=== PATIENT | female | born 1960 ===

== ENCOUNTER → 2023-07-01 08:00 | Outpatient (REF) | payer BC, SELFPAY | LOC: RAD 08:00 | PROVIDERS: ATTENDING PHYSICIAN Student in an Organized Health Care Education/Training Program; FAMILY PHYSICIAN Internal Medicine; OTHER PHYSICIAN Dermatology; OTHER PHYSICIAN Internal Medicine Cardiovascular Disease; OTHER PHYSICIAN Plastic Surgery Surgery of the Hand; REFERRING PHYSICIAN Specialist | DX: G56.03 Carpal tunnel syndrome, bilateral upper limbs (principal) | CPT/HCPCS: 76882 ==

== ENCOUNTER 2023-12-03 13:21 | Emergency (ER) | payer BC, SELFPAY ==
[2023-12-03 13:24] VITALS: BP 166/82
[2023-12-03 13:25] VITALS: BP 166/82
[2023-12-03 13:56] VITALS: BMI 32.5
[2023-12-03 13:56] LABS: % Basophils 0.2 % (0-2); % Immature Granulocytes 0.2 % (0-0.5); % Monocytes 7.7 % (1.7-9.3); % Neutrophils 62.9 % (42.2-75.2); Absolute Lymphocytes 1.9 10^3/uL (1.2-3.4); Absolute Monocytes 0.5 10^3/uL (0.1-0.6); Absolute Neutrophils 4.1 10^3/uL (1.4-6.5); Hematocrit 40.3 % (37.0-47.0); Hemoglobin 13.3 g/dL (12.0-16.0); Mean Corpuscular Hgb 27.4 pg (27.0-31.0); Mean Corpuscular Volume 83.1 fL (81.0-99.0); Mean Platelet Volume 9.2 fL (7.4-10.4); Nucleated Red Blood Cells % 0 %; Platelet Count 380 10^3/uL (130-400); Red Blood Cell Count 4.85 10^6/uL (4.20-5.40); Red Cell Dist. Width 13.2 % (11.5-14.5); White Blood Cell Count 6.5 10^3/uL (4.8-10.8)
[2023-12-03 14:00] VITALS: BP 141/64
[2023-12-03 14:07] LABS: ALT (SGPT) 17 U/L (0-35); AST (SGOT) 30 U/L (14-36); Albumin 4.2 g/dl (3.5-5.0); Alkaline Phosphatase 62 U/L (38-126); Blood Urea Nitrogen 30 mg/dl (7-17); Calcium 9.5 mg/dl (8.4-10.2); Carbon Dioxide 28 mmol/L (22-30); Chloride 98 mmol/L (98-107); Estimated Creatinine Clearance 84 ml/min; Glucose 91 mg/dl (70-99); Magnesium 1.8 mg/dl (1.6-2.3); Potassium 4.4 mmol/L (3.5-5.1); Sodium 139 mmol/L (135-145); Total Bilirubin 0.4 mg/dl (0.2-1.3); Total Protein 7.8 g/dl (6.3-8.2); eGFR > 60.00
--- NOTE | 2023-12-03 14:58 | ED.GENMED ---
History of Present Illness
General
Chief Complaint: Heart Rate Problem
Time Seen by Provider: 12/03/23 14:13
History of Present Illness
History of Present Illness:
Patient presents to the emergency department with episode of dizziness and bradycardia. She notes that while she was at work today she started feeling lightheaded and looked down at her Apple Watch which said her heart rate was around 40 bpm. She
did not lose consciousness. She went to the urgent care where they found her to be hypertensive and sent her to the emergency department. Symptoms have resolved at this time. She reports that she has a history of SVT status post ablation. She
notes that she has a history of frequent PVCs. Denies chest pain. Denies leg swelling.
Phy Exam
Physical Exam
Physical Exam:
GENERAL APPEARANCE: NAD, well developed/ well nourished
EYES lids/conjunctiva normal
EARS/NOSE/THROAT Mucous membranes moist, uvula midline without oral pharyngeal erythema, exudate or swelling
HEAD/NECK normocephalic atraumatic, neck is supple.
RESPIRATORY respiratory effort normal, speaks in full sentences, no accessory muscle use. Lungs clear to auscultation without rhonchi, wheezes, rales
CARDIAC frequent ectopy, regular rate in the 80s.
ABDOMINAL Soft, ND/NT. No pulsatile masses on exam, rebound tenderness, White sign or pain over Mcburney's point.
MUSCLES/EXTREMITIES No abnormal range of motion, no swelling.
SKIN Warm, pink and dry. No rashes
NEUROLOGICAL Speech is clear and appropriate. Normal level of consciousness. 5/5 strength in all extremities.
PSYCH Normal mood and affect. Judgement/competence is appropriate
Course
Orders/Labs/Results
Orders:
Orders
12/03/23 13:29
EKG [Electrocardiogram (*1)] Urgent
Reason for Study: Vertigo / Dizzy
12/03/23 13:30
EKG- Treatment ONCE
12/03/23 13:45
CMP [Comprehensive Metabolic Panel] Urgent
Complete Blood Count/With Diff Urgent
Free T4 Urgent
Magnesium Urgent
TSH Reflex To Free T4 Urgent
Abnormal Lab Results
12/03/23
13:45
BUN 30 H mg/dl
(7-17)
TSH (Reflex) 11.30 H uIU/ml
(0.47-4.68)
12/03/23 13:45
12/03/23 13:45
Vital Signs
Initial and Last Documented VS:
Initial Vital Signs
Temp Pulse Resp BP Pulse Ox
97.6 F 87 16 166/82 99
12/03/23 13:24 12/03/23 13:24 12/03/23 13:24 12/03/23 13:24 12/03/23 13:24
Last Documented Vital Signs
Temp Pulse Resp BP Pulse Ox
97.6 F 85 20 128/82 99
12/03/23 13:24 12/03/23 15:15 12/03/23 15:15 12/03/23 15:00 12/03/23 13:53
*Critical Care Note
Total Time (30-74mins, 75-104mins- exclusive of procedures): Not Applicable
ED Attending Note
ED Attending Note
ED Attending Note:
Patient was resolved episode of possible bradycardia per her Apple Watch. On arrival to the urgency department she is in sinus rhythm with frequent frequent PVCs which she reports history of. She is hemodynamically stable. Lab work is reassuring.
She has known thyroid disease and her T4 is within normal limits. Discussed close follow-up with her cellular phone repairer for Holter monitor. Return precautions given.
-
Portions of this chart may have been created with voice recognition software.� Occasional wrong word or��sound alike� substitutions may have occurred due to the inherent limitations of voice recognition software.
Discharge Plan
Departure
Patient Disposition: Home (Routine Discharge)
Date of Disposition: 12/03/23
Time of Disposition: 15:19
Patient with high blood pressure during this ER visit?: Yes
Discharge Problem:
Dizziness, Hypertension
Instructions: Ventricular premature beats
Prescriptions:
No Action
Theragen Tablet
1 tab PO DAILY
levothyroxine [Synthroid] 150 mcg Tablet
150 mcg PO DAILY
calcium carbonate [Tums] 200 mg calcium (500 mg) Tablet,Chewable
200 mg PO QIDPRN PRN (Reason: stomach issues)
hydrochlorothiazide 12.5 mg Capsule
12.5 mg PO DAILY
ibuprofen [Advil] 200 mg Tablet
400 mg PO Q6HPRN PRN (Reason: mild pain)
ergocalciferol (vitamin D2) [Vitamin D2] 1,250 mcg (50,000 unit) Capsule
1,250 mcg PO WE
carboxymethylcellulose sodium [Refresh Plus] 0.5 % Dropperette
1 drp BOTH EYES HS
Systane Ultra 0.4-0.3 % Drops
1 drp BOTH EYES DAILY
Referrals:
Zoe Stone MD [Family Provider] -
Activity Restrictions/Additional Instructions:
Please follow up with your cellular phone repairer as soon as possible. Return to ER with worsening symptoms
Interventions
Interventions:
*Risk Screen - Suicide Last Done: 12/03/23 13:24
*General Assessment Last Done: 12/03/23 13:24
*Neglect/Abuse Screening Last Done: 12/03/23 13:24
ED- Fall Risk Assessment Last Done: 12/03/23 13:53
*ED COVID-19 Vaccine History Last Done: 12/03/23 13:24
*Nursing Disposition Last Done: 12/03/23 15:45
ED- Pulmonary Assessment Last Done: 12/03/23 13:53
ED- Cardiac Assessment Last Done: 12/03/23 13:53
Discharge Date and Time
Discharge Date/Time: 12/03/23 15:46
Print Language: [id number]
[2023-12-03 15:00] VITALS: BP 128/82
[2023-12-03 15:05] LABS: Free T4 1.38 ng/dl (0.78-2.19)
== END 2023-12-03 15:46 | disposition home or self-care (01) ==
LOC: EMR 13:21
PROVIDERS: EMERGENCY PHYSICIAN Emergency Medicine; FAMILY PHYSICIAN Internal Medicine
DX: R42 Dizziness and giddiness (principal); I10 Essential (primary) hypertension; R00.1 Bradycardia, unspecified; Z86.79 Personal history of other diseases of the circulatory system
CPT/HCPCS: 99283; 80053; 83735; 84439; 84443; 85025; 93005